=== PATIENT | female | born 1965 | race Caucasian/White ===

== ENCOUNTER 2017-07-28 09:38 | Emergency (ER) | payer MEDICAID ==
[2017-07-28 10:50] VITALS: BP 180/96
== END 2017-07-28 10:50 | disposition home or self-care (01) ==
LOC: ED 09:38
DX: L02.415 Cutaneous abscess of right lower limb (principal); R03.0 Elevated blood-pressure reading, without diagnosis of hypertension
CPT/HCPCS: 90715; J2001

== ENCOUNTER 2017-07-30 14:44 | Emergency (ER) | payer MEDICAID ==
[~2017-07-30] VITALS: Ht 152.4 cm; Wt 66.2 kg
[2017-07-30 19:20] VITALS: BP 154/94
== END 2017-07-30 17:30 | disposition home or self-care (01) ==
LOC: ED 14:44
DX: Z48.01 Encounter for change or removal of surgical wound dressing (principal)

== ENCOUNTER 2020-06-25 08:31 | Emergency (ER) | payer MEDICAID ==
[~2020-06-25] VITALS: Ht 154.9 cm; Wt 60.3 kg
[2020-06-25 08:53] VITALS: BP 192/99; Ht 154.9 cm; Wt 60.3 kg
== END 2020-06-25 11:15 | disposition home or self-care (01) ==
LOC: ED 08:31
DX: S86.911A Strain of unspecified muscle(s) and tendon(s) at lower leg level, right leg, initial encounter (principal); X58.XXXA Exposure to other specified factors, initial encounter; Y93.89 Activity, other specified; Y92.89 Other specified places as the place of occurrence of the external cause; Y99.8 Other external cause status
CPT/HCPCS: J1885